=== PATIENT | male | born 1955 | race Caucasian/White ===

== ENCOUNTER 2018-01-16 18:30 | Emergency (ER) | payer SELFPAY ==
[~2018-01-16 18:30] MED LIST: CALCIUM CHLORIDE 1,000 MG/10 ML DISP.SYRIN ONE; DEXTROSE 50% 25 GM / 50ML DISP.SYRIN. IV ONE; EPINEPHrine SYRINGE 1 MG/10 ML SYRINGE ONE; EPINEPHrine VIAL 30 MG/30 ML VIAL ONE; SODIUM BICARB ADULT 8.4% 50 MEQ/50 ML DISP.SYRIN. ONE
[2018-01-16] MEDS ORDERED: SODIUM BICARB ADULT 8.4% 50 MEQ/50 ML DISP.SYRIN. ONE (18:48)
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
== END 2018-01-16 19:12 | disposition expired ==
LOC: ER 18:30 → EDBD 18:30 → ER 19:12
DX: I46.8 Cardiac arrest due to other underlying condition (principal); S01.00XA Unspecified open wound of scalp, initial encounter; V29.69XA Unspecified motorcycle rider injured in collision with other motor vehicles in traffic accident, initial encounter; Y93.89 Activity, other specified; Y92.410 Unspecified street and highway as the place of occurrence of the external cause; Y99.8 Other external cause status
CPT/HCPCS: 31500; 32551; 36415; 36430; 86920; 92950; 99291; J0171; J3490; P9016; J7042